=== PATIENT | male | born 2005 | race Caucasian/White ===

== ENCOUNTER 2024-06-07 18:24 | Emergency (ER) | payer MEDICAID, SELFPAY ==
--- NOTE | ~2024-06-07 | CT_ITS ---
CLINICAL HISTORY: hematuria, ?stone CT abdomen and pelvis without contrast Comparison: None Findings: Diffuse esophageal mural thickening, nonspecific. No urolithiasis. Scattered colonic diverticulosis without diverticulitis. Mildly diffuse ascending colonic and diffuse small bowel mural thickening, can be seen with mild enterocolitis. No bowel obstruction. Normal appendix. Circumferential bladder wall thickening. Possible tiny bladder calculus series 8, image 69 measuring less than 2 mm. Scattered prominent mesenteric lymph nodes, may be reactive. No acute fracture. IMPRESSION: 1. Possible tiny bladder calculus with wall thickening, may be related to degree of underdistention or cystitis. 2. Possible mild enterocolitis. This document has been electronically signed by: Harry Peres MD on 06/07/2024 19:53:00
--- NOTE | 2024-06-07 18:31 | ED.FEMALEGU ---
HPI - Female Genitourinary General Chief complaint: Urogenital-Male Stated complaint: blood in urine Time Seen by Provider: 06/07/24 20:41 Related Data Previous Rx's ?Medication ?Instructions ?Recorded cefpodoxime 200 mg tablet 200 mg PO BID 7 days #14 tabs 06/07/24 Allergies Allergy/AdvReac Type Severity Reaction Status Date / Time No Known Allergies Allergy Verified 06/07/24 18:35 [facility] Social History Social History Smoked in Last 30 Days: No Use of substances other than those prescribed or required for medical reasons: No Advance Directives: No Advance Directives Information Provided: No Do you have a plan to hurt others: No Plan Physical Exam Vital Signs: Vital Signs: Last Vital Signs Temp 97.6 F 06/07/24 21:17 Pulse 80 06/07/24 21:17 Resp 16 06/07/24 21:17 BP 137/93 H 06/07/24 21:17 Pulse Ox 98 06/07/24 21:17 O2 Del Method Room Air 06/07/24 21:17 BMI result Body Mass Index 24.5 Course Course Course Narrative: This is an RME: Additional HPI, ROS, PE not included below will be deferred to primary provider. RME assessment and note performed by: Rula Forrester PA-C This is a 18-year-old male who presents to the ER with concerns for hematuria. Reports pain after urination. Reports that they checked him for UTI and STI at an urgent care which were negative. US scheduled for tomorrow, but hematuria was worsening. Patient does report that he was on creatine, he has been on this since age 15. Plan: Labs, UA CT, further ER eval needed Reevaluation(s) Reevaluation #1: >> see other note by primary provider, Dr. Dutton Medications Administered Discontinued Medications Generic Name Dose Route Start Last Admin Trade Name Freq PRN Reason Stop Dose Admin Levofloxacin 750 mg 06/07/24 20:59 06/07/24 21:16 Levofloxacin 750 Mg Tablet PO 06/07/24 21:00 750 mg ONCE ONE Administration Medical Decision Making Lab Data 06/07/24 18:53 06/07/24 18:53 Labs: Lab Results 06/07/24 06/07/24 Range/Units 18:53 19:03 WBC 7.0 (4.8-10.8) X10*3/uL RBC 5.33 (4.60-5.80) X10*6/uL Hgb 16.4 (14.0-18.0) g/dl Hct 45.9 (42.0-52.0) % MCV 86.1 (80.0-98.0) fL MCH 30.8 (27.0-33.0) pg MCHC 35.7 (31.0-36.0) g/dl RDW 11.9 (11.0-16.0) % Plt Count 280 (160-400) X10*3/uL MPV 10.8 (9.4-12.4) fL Immature Gran % (Auto) 0.3 (0.0-0.4) % Neut % (Auto) 57.8 (45-73) % Lymph % (Auto) 32.4 (20-40) % [place] % (Auto) 7.5 (2-11) % Eos % (Auto) 1.4 (0-4) % Baso % (Auto) 0.6 (0-2) % Lymph # (Auto) 2.3 (1.2-4.9) X10*3/uL [place] # (Auto) 0.5 (0.1-1.2) X10*3/uL Eos # (Auto) 0.1 (0.0-0.4) X10*3/uL Baso # (Auto) 0.0 (0.0-0.2) X10*3/uL Abs Immat Gran (auto) 0.02 (0.00-0.03) X10*3/uL Absolute Neuts (auto) 4.1 (2.0-8.3) x10*3/uL Absolute Nucleated RBC 0.000 (0.0-0.012) X10*3/uL Nucleated RBC % (auto) 0.0 (0.0-0.2) /100WBC Sodium 140 (135-145) mmol/L Potassium 4.1 (3.3-5.1) mmol/L Chloride 106 (96-108) mmol/L Carbon Dioxide 26 (22-29) mmol/L Anion Gap 12 (12-20) BUN 14 (9-16) mg/dL Creatinine 0.97 (0.5-1.4) mg/dL Estim Creat Clear Calc 109.6 Estimated GFR > 60 Random Glucose 88 (60-115) mg/dL Calcium 10.1 (8.4-10.2) mg/dL Total Bilirubin 1.5 H (0.0-1.0) mg/dL Direct Bilirubin 0.4 (0.0-0.5) mg/dL AST 27 (5-37) U/L ALT 25 (0-40) U/L Alkaline Phosphatase 51 (39-117) U/L Total Creatine Kinase 223 H (38-174) U/L Total Protein 7.7 (6.5-8.0) g/dL Albumin 5.2 H (3.5-5.0) g/dL Urine Color Yellow Urine Appearance Clear Urine pH 5.5 (5.0-9.0) Ur Specific [place] 1.020 (1.005-1.025) Urine Protein Negative (Neg-Trace) mg/dL Urine Glucose (UA) Negative (Negative) mg/dL Urine Ketones Negative (Negative) mg/dL Urine Blood Large (3+) H (Negative) Urine Nitrite Negative (Negative) Ur Leukocyte Esterase Small (1+) H (Negative) Urine RBC >20 H (0-2) /HPF Urine WBC >50 H (0-5) /HPF Ur Squamous Epith Cells 0-2 (0-2) /HPF Urine Bacteria None Seen (None Seen) Hyaline Casts 0-2 (0-2) /LPF Discharge Plan Discharge Clinical Impression: Urinary tract infection, Kidney calculi Patient Disposition: Home, Self-Care Instructions: Kidney Stones (ED), Urinary Tract Infection in Men (DC), Kidney Ultrasound (ED) Additional Instructions: DISCHARGE DIAGNOSES: Urinary tract infection very small bladder stone HISTORY OF PRESENTATION: Blood in the urine EMERGENCY DEPARTMENT COURSE,TESTS, TREATMENTS: While in the ED today CT scan showed thickened wall of the bladder which suggests infection. There is also a very tiny calculi or stone within the bladder likely to pass on its own. Your urinalysis showed signs of urinary infection, as well as blood in the urine. DISCHARGE MEDICATIONS: Or starting you on an oral antibiotic take it as prescribed see attached FOLLOW-UP: ?Call your primary or general physician soon as possible to discuss your symptoms, your ED visit and to discuss follow up plans Call your primary doctor tomorrow to schedule follow up appointment within the next 3-5 days INSTRUCTIONS ?& RETURN PRECAUTIONS: If any symptoms change first call your primary physician, if it is after-hours your primary doctors office should have a provider construction helper you can speak with. If the symptoms are severe or very concerning to you then call 911 or return to the ED. Return back if you develop high fever chills inability to urinate severe abdominal pain or flank pain Call your primary doctor tomorrow they should be able to follow up on the urine culture we have sent and we recommend a repeat urinalysis in about 2 weeks to make sure there was no blood you may also need to be referred to Urology given the atypical presentation of thickened bladder wall and urinary tract infection Dom Dutton MD Emergency Physician [facility] [facility] Prescriptions: New cefpodoxime 200 mg tablet 200 mg PO BID 7 Days Qty: 14 0RF Rx Instructions: must administer with a meal/food Interventions: ED Discharge Assessment Last Done: 06/07/24 21:17 Discharge Date/Time: 06/07/24 21:18 Print Language: Sammarinese
[2024-06-07 18:32] VITALS: BP 128/68; PULSE 61; RESP 18; TEMP 2.3; TEMP 36.1; O2SAT 98; BMI 24.5
[2024-06-07 18:58] LABS: MANUAL DIFF FLAG NO
[2024-06-07 19:02] LABS: Basophils Percent Auto 0.6 % (0-2); Eosinophils Absolute Auto 0.1 X10*3/uL (0.0-0.4); Eosinophils Percent Auto 1.4 % (0-4); Hematocrit 45.9 % (42.0-52.0); Hemoglobin 16.4 g/dl (14.0-18.0); Imm Gran Abs Auto 0.02 X10*3/uL (0.00-0.03); Imm Gran Pct Auto 0.3 % (0.0-0.4); Lymphocytes Absolute Auto 2.3 X10*3/uL (1.2-4.9); Lymphocytes Percent Auto 32.4 % (20-40); Mean Corpuscular HGB Conc 35.7 g/dl (31.0-36.0); Mean Corpuscular Hemoglobin 30.8 pg (27.0-33.0); Mean Corpuscular Volume 86.1 fL (80.0-98.0); Mean Platelet Volume 10.8 fL (9.4-12.4); Monocytes Absolute Auto 0.5 X10*3/uL (0.1-1.2); Monocytes Percent Auto 7.5 % (2-11); Neutrophils Absolute Auto 4.1 x10*3/uL (2.0-8.3); Neutrophils Percent Auto 57.8 % (45-73); Platelet Count 280 X10*3/uL (160-400); Red Blood Count 5.33 X10*6/uL (4.60-5.80); Red Cell Distribution Width 11.9 % (11.0-16.0)
[2024-06-07 19:11] LABS: Appearance Urine Clear; Color Urine Yellow; Glucose Urine UA Negative (Negative); Leukocyte Esterase Urine Small (1+) (Negative); Nitrite Urine Negative (Negative); PH 5.5 (5.0-9.0); UMIC TRIGGER UACC YES; Urine Blood Large (3+) (Negative); Urine Ketones Negative (Negative); Urine Protein Negative (Neg-Trace)
[2024-06-07 19:19] LABS: Bacteria Urine None Seen (None Seen); Hyaline Casts Urine 0-2 /LPF (0-2); RBC Urine >20 /HPF (0-2); Squamous Epithelial Cell Urine 0-2 /HPF (0-2); UACC Culture Trigger YES; WBC Urine >50 /HPF (0-5)
[2024-06-07 19:20] LABS: Alanine Aminotransferase 25 U/L (0-40); Albumin Level 5.2 g/dL (3.5-5.0); Alkaline Phosphatase 51 U/L (39-117); Anion Gap 12 (12-20); Bilirubin Direct 0.4 mg/dL (0.0-0.5); Bilirubin Total 1.5 mg/dL (0.0-1.0); Blood Urea Nitrogen 14 mg/dL (9-16); Calcium 10.1 mg/dL (8.4-10.2); Carbon Dioxide 26 mmol/L (22-29); Chloride 106 mmol/L (96-108); Creatinine Clr Calc Pharmacy 109.6; Estimated Glomerular Filt Rate > 60; Glucose Random 88 mg/dL (60-115); Potassium 4.1 mmol/L (3.3-5.1); Sodium 140 mmol/L (135-145); Total Protein 7.7 g/dL (6.5-8.0)
[2024-06-07 19:34] LABS: Aspartate Amino Transferase 27 U/L (5-37)
[2024-06-07 20:34] VITALS: BP 137/93; PULSE 80; RESP 16; TEMP 36.4; O2SAT 98
--- NOTE | 2024-06-07 20:42 | ED.MALEGU ---
HPI - Male Genitourinary General Chief complaint: Urogenital-Male Stated complaint: blood in urine Time Seen by Provider: 06/07/24 20:41 History of Present Illness ED Provider: Dom Dutton MD HPI Narrative: Self-reported blood in the urine for 1.5 weeks. No flank pain denies fever. Related Data Previous Rx's ?Medication ?Instructions ?Recorded cefpodoxime 200 mg tablet 200 mg PO BID 7 days #14 tabs 06/07/24 Allergies Allergy/AdvReac Type Severity Reaction Status Date / Time No Known Allergies Allergy Verified 06/07/24 18:35 [facility] Social History Social History Smoked in Last 30 Days: No Use of substances other than those prescribed or required for medical reasons: No Advance Directives: No Advance Directives Information Provided: No Do you have a plan to hurt others: No Plan Physical Exam Vital Signs: Vital Signs: Last Vital Signs Temp 97.6 F 06/07/24 21:17 Pulse 80 06/07/24 21:17 Resp 16 06/07/24 21:17 BP 137/93 H 06/07/24 21:17 Pulse Ox 98 06/07/24 21:17 O2 Del Method Room Air 06/07/24 21:17 BMI result Body Mass Index 24.5 Const: Other: EXAM: Gen: Alert, awake, well appearing, well hydrated. Head: Atraumatic Eyes: Anicteric, Normal conjunctiva. ENT: Moist mucosa, no pallor. ? Neck: Supple. Respiratory: Breathing comfortably, No distress.Clear to auscultation bilaterally, symmetric chest expansion, No wheeze, rales, ronchi. Cardiovascular: Regular rate and rhythm. No murmurs or rub. Well perfused periphery, warm extremities. No edema. ? Abdominal: Soft, no objective distension. No palpable masses or obvious organomegaly. No focal tenderness, no guarding, no rebound tenderness or other peritoneal findings. : No flank tenderness. Neuro: Alert. Gross movement of all extremities intact. ? Vital signs: See flowsheet Medications Administered Discontinued Medications Generic Name Dose Route Start Last Admin Trade Name Freq PRN Reason Stop Dose Admin Levofloxacin 750 mg 06/07/24 20:59 06/07/24 21:16 Levofloxacin 750 Mg Tablet PO 06/07/24 21:00 750 mg ONCE ONE Administration Medical Decision Making Medical Decision Making [facility] Narrative: [age] male with self-reported hematuria no obstructive symptoms. Denies fever or chills. CT revealing possible tiny calculi within the bladder with bladder wall thickness. No hydronephrosis noted. No previous kidney stones no medications no blood thinners. Urinalysis suggests UTI given the lack of any obstructive signs on CT and I any calculi no indication for emergent urology consultation. This should pass on its own aggressive oral hydration recommended. Antibiotics initiated. Lab Data 06/07/24 18:53 06/07/24 18:53 Labs: Lab Results 06/07/24 06/07/24 Range/Units 18:53 19:03 WBC 7.0 (4.8-10.8) X10*3/uL RBC 5.33 (4.60-5.80) X10*6/uL Hgb 16.4 (14.0-18.0) g/dl Hct 45.9 (42.0-52.0) % MCV 86.1 (80.0-98.0) fL MCH 30.8 (27.0-33.0) pg MCHC 35.7 (31.0-36.0) g/dl RDW 11.9 (11.0-16.0) % Plt Count 280 (160-400) X10*3/uL MPV 10.8 (9.4-12.4) fL Immature Gran % (Auto) 0.3 (0.0-0.4) % Neut % (Auto) 57.8 (45-73) % Lymph % (Auto) 32.4 (20-40) % [place] % (Auto) 7.5 (2-11) % Eos % (Auto) 1.4 (0-4) % Baso % (Auto) 0.6 (0-2) % Lymph # (Auto) 2.3 (1.2-4.9) X10*3/uL [place] # (Auto) 0.5 (0.1-1.2) X10*3/uL Eos # (Auto) 0.1 (0.0-0.4) X10*3/uL Baso # (Auto) 0.0 (0.0-0.2) X10*3/uL Abs Immat Gran (auto) 0.02 (0.00-0.03) X10*3/uL Absolute Neuts (auto) 4.1 (2.0-8.3) x10*3/uL Absolute Nucleated RBC 0.000 (0.0-0.012) X10*3/uL Nucleated RBC % (auto) 0.0 (0.0-0.2) /100WBC Sodium 140 (135-145) mmol/L Potassium 4.1 (3.3-5.1) mmol/L Chloride 106 (96-108) mmol/L Carbon Dioxide 26 (22-29) mmol/L Anion Gap 12 (12-20) BUN 14 (9-16) mg/dL Creatinine 0.97 (0.5-1.4) mg/dL Estim Creat Clear Calc 109.6 Estimated GFR > 60 Random Glucose 88 (60-115) mg/dL Calcium 10.1 (8.4-10.2) mg/dL Total Bilirubin 1.5 H (0.0-1.0) mg/dL Direct Bilirubin 0.4 (0.0-0.5) mg/dL AST 27 (5-37) U/L ALT 25 (0-40) U/L Alkaline Phosphatase 51 (39-117) U/L Total Creatine Kinase 223 H (38-174) U/L Total Protein 7.7 (6.5-8.0) g/dL Albumin 5.2 H (3.5-5.0) g/dL Urine Color Yellow Urine Appearance Clear Urine pH 5.5 (5.0-9.0) Ur Specific [place] 1.020 (1.005-1.025) Urine Protein Negative (Neg-Trace) mg/dL Urine Glucose (UA) Negative (Negative) mg/dL Urine Ketones Negative (Negative) mg/dL Urine Blood Large (3+) H (Negative) Urine Nitrite Negative (Negative) Ur Leukocyte Esterase Small (1+) H (Negative) Urine RBC >20 H (0-2) /HPF Urine WBC >50 H (0-5) /HPF Ur Squamous Epith Cells 0-2 (0-2) /HPF Urine Bacteria None Seen (None Seen) Hyaline Casts 0-2 (0-2) /LPF Discharge Plan Discharge Clinical Impression: Urinary tract infection, Kidney calculi Patient Disposition: Home, Self-Care Instructions: Kidney Stones (ED), Urinary Tract Infection in Men (DC), Kidney Ultrasound (ED) Additional Instructions: DISCHARGE DIAGNOSES: Urinary tract infection very small bladder stone HISTORY OF PRESENTATION: Blood in the urine EMERGENCY DEPARTMENT COURSE,TESTS, TREATMENTS: While in the ED today CT scan showed thickened wall of the bladder which suggests infection. There is also a very tiny calculi or stone within the bladder likely to pass on its own. Your urinalysis showed signs of urinary infection, as well as blood in the urine. DISCHARGE MEDICATIONS: Or starting you on an oral antibiotic take it as prescribed see attached FOLLOW-UP: ?Call your primary or general physician soon as possible to discuss your symptoms, your ED visit and to discuss follow up plans Call your primary doctor tomorrow to schedule follow up appointment within the next 3-5 days INSTRUCTIONS ?& RETURN PRECAUTIONS: If any symptoms change first call your primary physician, if it is after-hours your primary doctors office should have a provider senior compensation consultant you can speak with. If the symptoms are severe or very concerning to you then call 911 or return to the ED. Return back if you develop high fever chills inability to urinate severe abdominal pain or flank pain Call your primary doctor tomorrow they should be able to follow up on the urine culture we have sent and we recommend a repeat urinalysis in about 2 weeks to make sure there was no blood you may also need to be referred to Urology given the atypical presentation of thickened bladder wall and urinary tract infection Dom Dutton MD Emergency Physician [facility] Prescriptions: New cefpodoxime 200 mg tablet 200 mg PO BID 7 Days Qty: 14 0RF Rx Instructions: must administer with a meal/food Interventions: ED Discharge Assessment Last Done: 06/07/24 21:17 Discharge Date/Time: 06/07/24 21:18 Print Language: Arabic
[2024-06-07] MEDS: levoFLOXacin 750 MG TABLET PO (21:16)
[2024-06-07 21:17] VITALS: BP 137/93; PULSE 80; RESP 16; TEMP 36.4; O2SAT 98
== END 2024-06-07 21:18 | disposition home or self-care (01) ==
PROVIDERS: Physician Assistant Medical; Emergency Provider Emergency Medicine
DX: N39.0 Urinary tract infection, site not specified (principal); N20.0 Calculus of kidney
CPT/HCPCS: 36415; 74176; 80048; 80076; 81001; 82550; 85025; 87086; 99284

== ENCOUNTER → 2024-06-07 18:37 | Outpatient (BNV) | payer MEDICAID, SELFPAY | PROVIDERS: Visit Provider Radiology Diagnostic Radiology | DX: R31.9 Hematuria, unspecified (principal) | CPT/HCPCS: 74176 ==